=== PATIENT | female | born 1960 | race Caucasian/White ===

== ENCOUNTER 2016-12-12 08:47 | Day surgery (SDC) | payer OTHER ==
[~2016-12-12] VITALS: Ht 157.5 cm; Wt 79.0 kg
[2016-12-12 10:41] VITALS: Ht 157.5 cm; Wt 79.0 kg
[2016-12-12 10:56] VITALS: BP 127/74; PULSE 88; RESP 16
[2016-12-12] MEDS ORDERED: LIDOCAINE 4% SOLUTION 50 ML BTL ONE (11:03)
--- NOTE | 2016-12-12 11:35 | GILP ---
DATE OF PROCEDURE: 12/12/2016 NAME OF PROCEDURE: Esophagogastroduodenoscopy. SURGEON: Amy Mota MD PREOPERATIVE DIAGNOSIS: The patient presenting with history of chronic abdominal pain unresponsive to routine [id number] therapy. Rule out peptic ulcer disease, gastritis, etc. POSTOPERATIVE DIAGNOSES: 1. Diffuse mild gastritis. 2. No ulcer, no esophagitis noted. DESCRIPTION OF PROCEDURE: After the informed written consent was obtained, the patient was asked to lie on the left lateral side. The patient was given intravenous anesthesia which included 3 mg Oanh sed and 50 mcg of fentanyl. When the patient became somnolent, the Olympus video upper endoscope wa s introduced into the oropharynx, then into the esophagus. Esophagus showed normal mucosal pattern with no ulcers, no neoplasm. Scope at this time was advanced into the stomach. Stomach showed evid ence of several areas of erythema, which is indicative of patchy mild gastritis. Biopsy was done fr om the antrum, the lesser curvature and the fundus, with no ulcers, no neoplasm. Duodenum showed no rmal mucosal pattern with no ulcers, no duodenitis. Scope at this time was withdrawn and on the way out, no additional abnormalities detected and the procedure was terminated. PLAN: Recommend omeprazole 40 mg a day. Dictated By: AMY SARAVIA/CONNIE Conf#: [id number] DID#: [id number] CC: GURWINDER [place] DO; AMY MOTA MD;*EndCC*
[2016-12-12] MEDS ORDERED: MIDAZOLAM 1 MG/ML 2 ML INJ ONE ×2 (11:59)
[2016-12-12] MEDS ORDERED: FENTAnyl 50 MCG/ML VIAL ONE (11:59)
[2016-12-12 12:15] VITALS: BP 110/64; RESP 20
--- NOTE | 2016-12-12 12:34 | GILP ---
DATE OF PROCEDURE: NAME OF PROCEDURE: Colonoscopy. PREOPERATIVE DIAGNOSIS: Screening colonoscopy to rule out colon polyps. POSTOPERATIVE DIAGNOSES: Moderate degree of diverticulosis all over the colon. No bleeding noted a nd no diverticulitis, and minimal external hemorrhoids noted. DESCRIPTION OF PROCEDURE: After the informed written consent was obtained, the patient was asked to lie on the left lateral side. The patient was given 50 mcg of fentanyl and 4 mg of Versed. When t he patient became somnolent, the Olympus video colonoscope was introduced into the rectum and advanc ed all the way to the cecum. Appendiceal opening and ileocecal valve identified. No abnormality de tected. Moderate degree of diverticulosis noted all along the colon. No evidence of infection, no polyps, no carcinoma noted. No bleeding noted. On the way out, retroflexion was performed. No int ernal hemorrhoids, but when the scope was withdrawn, minimal external hemorrhoids were noted and the procedure was terminated. PLAN: Recommend repeat colonoscopy in 10 years. Dictated By: AMY SARAVIA/CONNIE Conf#: [id number] DID#: [id number] CC: Dangelo Franks;*EndCC*
== END 2016-12-12 15:25 | disposition home or self-care (01) ==
LOC: GIL 08:47
PROVIDERS: ATTEND Internal Medicine Gastroenterology
DX: Z12.11 Encounter for screening for malignant neoplasm of colon (principal); K57.30 Diverticulosis of large intestine without perforation or abscess without bleeding; K64.4 Residual hemorrhoidal skin tags; K29.30 Chronic superficial gastritis without bleeding; B96.81 Helicobacter pylori [H. pylori] as the cause of diseases classified elsewhere
CPT/HCPCS: 43239; 45378; 88305; 88312; J2250; J3010; Z7610